=== PATIENT | female | born 1975 | race Caucasian/White ===

== ENCOUNTER → 2023-08-26 11:25 | Outpatient (CLI) | payer MEDICARE, MEDICAID, SELFPAY ==
[2023-08-26 19:13] LABS: Basophils % 0.3 % (0.1-2.0); Eosinophils # 0.2 K/mm3 (0.0-0.4); Eosinophils % 1.9 % (0.1-12.0); Hematocrit 40.9 % (37.0-47.0); Hemoglobin 13.6 g/dL (12.2-16.2); Lymphocytes # 2.5 K/mm3 (0.7-4.5); Lymphocytes % 21.6 % (10-50); Mean Corpuscular HGB Conc 33.2 g/dL (31.8-35.4); Mean Corpuscular Hemoglobin 29.4 pg (27.0-31.2); Mean Corpuscular Volume 88.7 fl (81-99); Mean Platelet Volume 8.7 fl (7.4-10.4); Monocytes # 0.7 K/mm3 (0.1-1.0); Monocytes % 6.2 % (1.7-9.3); Neutrophils # 8.1 K/mm3 (1.8-7.8); Platelet Count 249 K/mm3 (142-424); Red Blood Count 4.62 M/mm3 (4.20-5.40); Red Cell Distribution Width 15.8 % (11.5-17.5); White Blood Count 11.5 K/mm3 (4.8-10.8)
[2023-08-26 19:27] LABS: Alanine Aminotransferase 33 U/L (12-78); Albumin Level 4.2 g/dl (3.5-5.0); Albumin/Globulin Ratio 1.4 (1.1-1.8); Alkaline Phosphatase 64 U/L (38-126); Anion Gap 12.7 mEq/L (5-15); Aspartate Amino Transferase 37 U/L (14-36); Bilirubin,Total 0.5 mg/dl (0.2-1.3); Blood Urea Nitrogen 8 mg/dl (7-17); Calcium 9.8 mg/dl (8.4-10.2); Carbon Dioxide 29 mmol/L (22.0-30.0); Chloride 99 mmol/L (98-107); Chol/HDL Ratio 3.4 (1-3.5); Cholesterol 201 mg/dl (140-200); Estimated Glomerular Filt Rate 89 ml/min (>60); GFR (African American) 108 ML/MIN (>60); Glucose 87 mg/dl (74-100); HDL Cholesterol 59 mg/dl (40-60); Potassium 3.7 mmoL/L (3.5-5.1); Sodium 137 mmol/L (136-145); Total Protein,Serum 7.2 g/dl (6.3-8.2); Triglycerides 201 mg/dl (30-150); VLDL Cholesterol 40 mg/dL (0-40)
[2023-08-26 19:40] LABS: Direct LDL Cholesterol 115.03 mg/dL (100-129)
[2023-08-26 19:44] LABS: 25-OH Vitamin D, Total 29.5 ng/mL (30-100)
[2023-08-28 11:24] LABS: Amphetamine/Metha Screen,Urine Negative ng/ml (<1000); Barbiturates Screen,Urine Negative ng/ml (<200)
[2023-08-28 11:25] LABS: Benzodiazepines Screen,Urine Negative ng/ml (<200)
[2023-08-28 11:26] LABS: Cannabinoid Screen,Urine Positive ng/ml (<50); Cocaine Screen,Urine Negative ng/ml (<300)
[2023-08-28 11:27] LABS: Methadone Screen,Urine Negative ng/ml (<300); Opiate Screen,Urine Negative ng/ml (<300)
[2023-08-28 11:28] LABS: Phencyclidine Screen,Urine Negative ng/ml (<25)
[2023-08-28 11:31] LABS: Creatinine,Urine Random 90 mg/dL (Not Estab.); Microalbumin < 6.000 mg/L (0-16.7)
== END ==
PROVIDERS: PCP Emergency Medicine; Visit Provider Emergency Medicine
DX: E55.9 Vitamin D deficiency, unspecified (principal); E66.9 Obesity, unspecified; R73.03 Prediabetes; E78.5 Hyperlipidemia, unspecified; Z79.899 Other long term (current) drug therapy; Z68.44 Body mass index [BMI] 60.0-69.9, adult
CPT/HCPCS: 80053; 80061; 80305; 82043; 82306; 82570; 83036; 84436; 84443; 85025

== ENCOUNTER 2024-01-01 22:21 | Outpatient (CLI) | payer MEDICARE, MEDICAID, SELFPAY ==
[2024-01-01 18:08] LABS: Basophils # 0.1 K/mm3 (0-0.2); Basophils % 0.7 % (0.1-2.0); Eosinophils # 0.2 K/mm3 (0.0-0.4); Eosinophils % 1.3 % (0.1-12.0); Hematocrit 44.9 % (37.0-47.0); Hemoglobin 14.4 g/dL (12.2-16.2); Lymphocytes # 2.4 K/mm3 (0.7-4.5); Lymphocytes % 18.6 % (10-50); Mean Corpuscular HGB Conc 32.1 g/dL (31.8-35.4); Mean Corpuscular Hemoglobin 30.1 pg (27.0-31.2); Mean Corpuscular Volume 93.7 fl (81-99); Mean Platelet Volume 8.5 fl (7.4-10.4); Monocytes # 0.9 K/mm3 (0.1-1.0); Monocytes % 6.6 % (1.7-9.3); Neutrophils # 9.5 K/mm3 (1.8-7.8); Neutrophils % 72.9 % (37.0-80.0); Platelet Count 302 K/mm3 (142-424); Red Cell Distribution Width 14.7 % (11.5-17.5); White Blood Count 13.1 K/mm3 (4.8-10.8)
[2024-01-01 19:42] LABS: Hemoglobin A1C 5.3 % (4.0-6.0)
[2024-01-01 19:49] LABS: Alanine Aminotransferase 29 U/L (12-78); Albumin Level 3.8 g/dl (3.5-5.0); Albumin/Globulin Ratio 1.4 (1.1-1.8); Alkaline Phosphatase 72 U/L (38-126); Anion Gap 12.4 mEq/L (5-15); Aspartate Amino Transferase 28 U/L (14-36); Bilirubin,Total 0.6 mg/dl (0.2-1.3); Blood Urea Nitrogen 11 mg/dl (7-17); Calcium 9.4 mg/dl (8.4-10.2); Carbon Dioxide 28 mmol/L (22.0-30.0); Chloride 101 mmol/L (98-107); Estimated Glomerular Filt Rate 67 ml/min (>60); GFR (African American) 81 ML/MIN (>60); Globulin 2.8 g/dL (1.3-3.2); Glucose 102 mg/dl (74-100); Potassium 3.4 mmoL/L (3.5-5.1); Sodium 138 mmol/L (136-145); Total Protein,Serum 6.6 g/dl (6.3-8.2)
[2024-01-01 20:22] LABS: Thyroid Stimulating Hormone 0.45 uIU/mL (0.465-4.68)
== END 2024-01-01 23:59 ==
LOC: LAB.DROPOF 22:22
PROVIDERS: PCP Internal Medicine; Visit Provider Internal Medicine
DX: F41.9 Anxiety disorder, unspecified; Z79.899 Other long term (current) drug therapy; E03.8 Other specified hypothyroidism
CPT/HCPCS: 80053; 83036; 84443; 85025

== ENCOUNTER 2024-01-16 12:55 | Outpatient (CLI) | payer MEDICARE, MEDICAID, SELFPAY ==
[2024-01-16 18:05] LABS: Microalbumin/Creatinine Ratio 3.7
[2024-01-16 18:11] LABS: Creatinine,Urine Random 200 mg/dL (Not Estab.)
== END 2024-01-16 23:59 ==
LOC: LAB.DROPOF 12:56
PROVIDERS: PCP Internal Medicine; Visit Provider Internal Medicine
DX: R73.03 Prediabetes (principal)
CPT/HCPCS: 82043; 82570

== ENCOUNTER 2024-03-16 12:47 | Outpatient (CLI) | payer MEDICARE, MEDICAID, SELFPAY ==
[2024-03-16 18:46] LABS: Chloride 101 mmol/L (98-107); Sodium 137 mmol/L (136-145)
[2024-03-16 18:47] LABS: Potassium 3.6 mmoL/L (3.5-5.1)
[2024-03-16 18:49] LABS: Alanine Aminotransferase 28 U/L (12-78); Alkaline Phosphatase 66 U/L (38-126); Anion Gap 9.6 mEq/L (5-15); Aspartate Amino Transferase 29 U/L (14-36); Bilirubin,Total 0.5 mg/dl (0.2-1.3); Blood Urea Nitrogen 13 mg/dl (7-17); Carbon Dioxide 30 mmol/L (22.0-30.0); Estimated Glomerular Filt Rate 76 ml/min (>60); GFR (African American) 92 ML/MIN (>60)
[2024-03-16 18:50] LABS: Albumin/Globulin Ratio 1.4 (1.1-1.8); Calcium 9.6 mg/dl (8.4-10.2); Globulin 2.9 g/dL (1.3-3.2); Glucose 100 mg/dl (74-100); Total Protein,Serum 6.9 g/dl (6.3-8.2)
== END 2024-03-16 23:59 | disposition home or self-care (01) ==
LOC: LAB.DROPOF 03-17 10:21
PROVIDERS: PCP Internal Medicine; Visit Provider Internal Medicine
DX: E03.9 Hypothyroidism, unspecified (principal)
CPT/HCPCS: 80053; 84443

== ENCOUNTER 2024-06-09 11:00 | Outpatient (CLI) | payer MEDICARE, MEDICAID, SELFPAY ==
[2024-06-09 19:15] LABS: Erythrocyte Sedimentation Rate 16 mm/hr (0-20)
[2024-06-09 19:30] LABS: C-Reactive Protein 6.5 mg/L (0-4)
[2024-06-11 17:43] LABS: Anti-Centromere B Antibodies <0.2 AI (0.0-0.9); Anti-DNA (DS) Ab Qn <1 IU/mL (0-9); Anti-Jo-1 <0.2 AI (0.0-0.9); Anti-Smith Antibody <0.2 AI (0.0-0.9); Antichromatin Antibodies 0.2 AI (0.0-0.9); Antiscleroderma-70 Antibodies <0.2 AI (0.0-0.9); RNP Antibodies 1.1 AI (0.0-0.9); Sjogren's Anti-SS-A <0.2 AI (0.0-0.9); Sjogren's Anti-SS-B <0.2 AI (0.0-0.9)
[2024-06-21 14:10] LABS: 1,25 Dihydroxy Vitamin D 30 pg/mL (.); 1,25-Dihydroxy, Vitamin D-2 <10 pg/mL (.); 1,25-Dihydroxy, Vitamin D-3 29 pg/mL (.)
== END 2024-06-09 23:59 | disposition home or self-care (01) ==
LOC: LAB.DROPOF 06-10 11:00
PROVIDERS: PCP Internal Medicine; Visit Provider Internal Medicine
DX: E66.01 Morbid (severe) obesity due to excess calories (principal); Z68.44 Body mass index [BMI] 60.0-69.9, adult; G62.9 Polyneuropathy, unspecified; I89.0 Lymphedema, not elsewhere classified
CPT/HCPCS: 82652; 85651; 86140; 86225; 86235

== ENCOUNTER 2025-09-26 16:31 | Outpatient (CLI) | payer MEDICARE, MEDICAID, SELFPAY ==
[2025-09-26 17:32] LABS: Hematocrit 43.0 % (37.0-47.0); Hemoglobin 13.5 g/dL (12.2-16.2); Immature Granulocytes % 0.5 %; Mean Corpuscular HGB Conc 31.4 g/dL (31.8-35.4); Mean Corpuscular Hemoglobin 26.8 pg (27.0-31.2); Mean Corpuscular Volume 85.3 fl (81-99); Nucleated Red Blood Cells % 0 %; Platelet Count 383 K/mm3 (142-424); Red Blood Count 5.04 M/mm3 (4.20-5.40); Red Cell Distribution Width-SD 44.9 fL; White Blood Count 15.1 K/mm3 (4.8-10.8)
[2025-09-26 17:45] LABS: Albumin Level 4.4 g/dl (3.5-5.0); Chloride 98 mmol/L (98-107); Potassium 3.9 mmoL/L (3.5-5.1); Sodium 137 mmol/L (136-145)
[2025-09-26 17:48] LABS: Alanine Aminotransferase 24 U/L (12-78); Albumin/Globulin Ratio 1.4 (1.1-1.8); Alkaline Phosphatase 75 U/L (38-126); Anion Gap 14.9 mEq/L (5-15); Aspartate Amino Transferase 30 U/L (14-36); Bilirubin,Total 0.5 mg/dl (0.2-1.3); Blood Urea Nitrogen 18 mg/dl (7-17); Calcium 9.8 mg/dl (8.4-10.2); Carbon Dioxide 28 mmol/L (22.0-30.0); Cholesterol 203 mg/dl (140-200); Creatinine,Serum 0.80 mg/dl (0.52-1.04); Estimated Glomerular Filt Rate 76 ml/min (>60); GFR (African American) 92 ML/MIN (>60); Globulin 3.2 g/dL (1.3-3.2); Glucose 128 mg/dl (74-100); HDL Cholesterol 70 mg/dl (40-60); Total Protein,Serum 7.6 g/dl (6.3-8.2); Triglycerides 135 mg/dl (30-150)
== END 2025-09-26 23:59 | disposition home or self-care (01) ==
PROVIDERS: PCP Student in an Organized Health Care Education/Training Program; Visit Provider Student in an Organized Health Care Education/Training Program
DX: M17.0 Bilateral primary osteoarthritis of knee (principal); I10 Essential (primary) hypertension; E66.01 Morbid (severe) obesity due to excess calories; Z13.6 Encounter for screening for cardiovascular disorders
CPT/HCPCS: 36415; 80053; 80061; 85025

== ENCOUNTER 2025-10-18 13:01 | Outpatient (CLI) | payer MEDICARE, MEDICAID, SELFPAY ==
[2025-10-18 21:48] LABS: Uric Acid 7.5 mg/dl (2.5-6.2)
[2025-10-18 21:54] LABS: C-Reactive Protein 9.3 mg/L (0-4)
[2025-10-18 21:55] LABS: Hemoglobin A1C 5.6 % (4.0-6.0)
[2025-10-18 22:07] LABS: Free T4 (Free Thyroxine) 1.37 ng/dl (0.78-2.19)
[2025-10-18 22:19] LABS: Thyroid Stimulating Hormone 9.54 uIU/mL (0.465-4.68)
--- OUTSIDE RECORDS SUMMARY | 2025-10-19 18:15 | XMS_ITS | Clinical Summary ---
[facility] Organization [facility] Address [address] [id number] Care Team Providers Care Steam Service Inspector Name Role Phone Mikie Chan MD Primary Care Provider + Allergies No known active allergies Medications aspirin 81 MG EC tablet Take 81 mg by mouth 3 (Three) Times a Day. Active Acetaminophen (TYLENOL ARTHRITIS PAIN PO) Take 2 tablets by mouth Daily. Active Multiple Vitamins-Minerals (MULTIVITAMIN ADULT PO) Take 1 tablet by mouth Daily. Active Naloxegol Oxalate (MOVANTIK) 25 MG tabletIndications: Therapeutic opioid induced constipation Take 1 tablet by mouth Every Morning. 30 tablet 2 09/20/20 19 Active triamcinolone (KENALOG) 0.1 % creamIndications:R gigi Apply topically to the appropriate area as directed 2 (Two) Times a Day. 28.4 g 11/25/19 20 Active D3-1000 25 MCG (1000 UT) tablet T1T PO QD 30 tablet 5 01/04/20 20 Active Spinosad 0.9 % suspensionIndicati ons:Pediculosis capitis Apply to scalp x 1 and repeat in 7 days if live lice 120 mL 1 01/04/20 20 Active olopatadine (PATANOL) 0.1 % ophthalmic solutionIndication s:Allergic conjunctivitis of both eyes INSTILL 1 DROP INTO BOTH EYES EVERY DAY 5 mL 5 08/08/20 20 Active famotidine (PEPCID) 40 MG tabletIndications: Gastroesophageal reflux disease TAKE 1/2 TABLET BY MOUTH TWICE DAILY 30 tablet 2 03/29/20 21 Active valACYclovir (VALTREX) 1000 MG tablet TAKE 1 TABLET BY MOUTH EVERY DAY DIRECTED 30 tablet 1 07/10/20 21 Active hydrOXYzine pamoate (VISTARIL) 25 MG capsuleIndications :Anxiety and depression Take 1 capsule by mouth Every 6 (Six) Hours As Needed for Itching. 45 capsule 2 06/04/20 22 Active Cholecalciferol (Vitamin D3) 50 MCG (2000 UT) tablet TAKE 2 TABLETS BY MOUTH EVERY DAY 60 tablet 9 10/18/20 22 Active ondansetron ODT (ZOFRAN-ODT) [address] 1 TABLET ON THE TONGUE AND ALLOW TO DISSOLVE EVERY 8 HOURS NEEDED FOR NAUSEA AND VOMITING 15 tablet 1 12/30/19 23 Active hydroCHLOROthiazid e (HYDRODIURIL) 25 MG tablet TAKE 1 TABLET BY MOUTH EVERY DAY 30 tablet 1 02/08/20 23 Active cyclobenzaprine (FLEXERIL) 10 MG tablet Take 0.5-1 tablets by mouth 3 (Three) Times a Day As Needed for Muscle Spasms. 45 tablet 2 03/04/20 23 Active potassium chloride 10 MEQ CR tablet Take 1 tablet by mouth Daily. 90 tablet 1 03/04/20 23 Active oxybutynin XL (DITROPAN XL) 15 MG 24 hr tablet Take 1 tablet by mouth Daily. Take with 5 mg dose 30 tablet 5 03/10/20 23 Active oxybutynin XL (DITROPAN-XL) 5 MG 24 hr tablet Take 1 tablet by mouth Daily. Take with 15 mg dose 30 tablet 5 03/10/20 23 Active levothyroxine (SYNTHROID, LEVOTHROID) 150 MCG tabletIndications: Hypothyroidism, unspecified type Take 1 tablet by mouth Daily. 30 tablet 5 03/11/20 23 Active fluticasone (FLONASE) 50 MCG/ACT nasal sprayIndications:D ysfunction of both eustachian tubes INSTILL 2 SPRAYS IN EACH NOSTRIL EVERY DAY 16 g 1 03/21/20 23 Active fluconazole (DIFLUCAN) 150 MG tablet TAKE 1 TABLET BY MOUTH TODAY MAY REPEAT IN 3 DAYS IF NOT BETTER 2 tablet 06/13/20 23 Active gabapentin (NEURONTIN) 600 MG tabletIndications: Neuropathy,Chronic bilateral low back pain with bilateral sciatica Take 1 tablet by mouth 3 (Three) Times a Day. 90 tablet 1 07/17/20 23 Active ferrous sulfate (FeroSul) 325 (65 FE) MG tablet Take 1 tablet by mouth Daily With Breakfast. 30 tablet 1 07/17/20 23 Active albuterol sulfate HFA 108 (90 Base) MCG/ACT inhaler INHALE 2 PUFFS EVERY 4 (FOUR) HOURS NEEDED FOR WHEEZING. 8.5 g 07/18/20 23 Active tobramycin 0.3 % solution ophthalmic solutionIndication s:Acute conjunctivitis of both eyes, unspecified acute conjunctivitis type Administer 1 drop to both eyes Every 6 (Six) Hours. 5 mL 2 09/09/20 23 Active metoprolol succinate XL (TOPROL-XL) 50 MG 24 hr tabletIndications: Essential hypertension Take 1 tablet by mouth Daily. 30 tablet 1 09/08/20 23 Active FLUoxetine (PROzac) 40 MG capsuleIndications :Anxiety and depression Take 1 capsule by mouth Daily. 30 capsule 1 09/08/20 23 Active Semaglutide, 1 MG/DOSE, (Ozempic, 1 MG/DOSE,) 4 MG/3ML solution pen-injector Inject 1 mg under the skin into the appropriate area as directed 1 (One) Time Per Week. 3 mL 1 09/11/20 23 Active buPROPion SR (WELLBUTRIN SR) 150 MG 12 hr tablet Take 1 tablet by mouth 2 (Two) Times a Day. APPOINTMENT NEEDED 60 tablet 02/18/20 Active Active Problems Problem Noted Date Diagnosed Date ERRONEOUS ENCOUNTER--DISREGARD 07/29/2024 Colon cancer screening 04/23/2023 Overview (04/23/2023): Added automatically from request for surgery [id number] Prediabetes 03/04/2023 CRF (chronic renal failure), stage 4 (severe) Leukocytosis 04/16/2021 Polycythemia 04/16/2021 Chest pain 07/03/2018 Palpitations 07/03/2018 Murmur, cardiac 07/03/2018 Immunizations Immunization Administration Dates Next Due COVID-19 (PFIZER) Purple Cap Monovalent 09/26/20 21,01/31/2021,01/06/2021 Hepatitis B 01/19/2002,03/19/2001,01/22/2001 MMR 01/22/2001 flucelvax quad pfs =>4 YRS 09/20/2019 Family History Medical History Relation Name Comments Diabetes Father Heart attack Father Hyperlipidemia Father Hypertension Father Mental illness Father Obesity Father Thyroid disease Father Arthritis Mother Hypertension Mother Kidney disease Mother Mental illness Mother Migraines Mother Obesity Mother Stroke Mother Mental illness Sister Obesity Sister Relation Name Status Comments Father Mother Sister Alive Social History Tobacco Use Types Packs/Day Years Used Date Smoking Tobacco: Never Smokeless Tobacco: Never Alcohol Use Standard Drinks/Week Comments No 0 (1 standard drink = 0.6 oz pur e alcohol) PHQ-2 Answer Date Recorded Retired Total Score 0 04/16/2021 Abuse Screen Answer Date Recorded Unsafe at Home or Work/School Not on file Feels Threatened by Someone? Not on file 07/2023 Does Anyone Keep You from Co ntacting Others or Doint Things Outside the Home? Not on file 08/11/2023 Physical Sign of Abuse Present Not on file 1 Housing Stability Answer Date Recorded Current Living Arrangements Not on file 07/2023 Potentially Unsafe Housing Conditions Not on damian e 08/11/2023 Family and Community Support Answer Nuno e Recorded Help with Day-to-Day Activities Not on file 08/11/2023 Lonely or Isolated Not on file 08/11/2023 Employment Answer Date Recorded Do you want help finding or keeping work or a lena b? Not on file 08/11/2023 Disabilities Answer Date Recorded Concentrating, Remembering, or Making Decisions Difficulty Not on file 08/11/2023 Doing Errands Independently Difficulty Not on fi le 08/11/2023 Education Answer Date Recorded Help with school or training? Not on file Preferred Language Not on file 08/11/2023 Comments Unknown Sex and Gender Information Value Date Recorded Sex Assigned at Not on file Legal Sex Female 12:27 PM EDT Gender Identity Not on file Sexual Orientation Not on file Last Filed Vital Signs Vital Sign Reading Time Taken Comments Blood Pressure 128/84 03/04/2023 4:18 PM EDT Pulse 86 03/04/2023 4:18 PM EDT Temperature 37 C (98.6 F) 03/04/2023 4:18 PM EDT Respiratory Rate 18 03/04/2023 4:18 PM EDT Oxygen Saturation 98% 04/16/2021 11:40 AM EDT Inhaled Oxygen Concentration - - Weight 199 kg (438 lb) 03/04/2023 4:18 PM EDT Height 167.6 cm (5' 6 ) 03/04/2023 4:18 PM EDT Body Mass Index 70.7 03/04/2023 4:18 PM EDT Plan of Treatment Health Maintenance Due Date Last Done Comments Annual Gynecologic Pelvic an d Breast Exam 1974 TDAP/TD VACCINES (1 - Tdap) 1993 MAMMOGRAM 2014 ANNUAL PHYSICAL 06/19/2018 COLOGUARD 2019 COLON CANCER SCREENING 5 YEA R SIGMOIDOSCOPY 2019 COLONOSCOPY 2019 [address] CANCER SCREENING 2019 CT COLONOGRAPHY 2019 FECAL OCCULT BLOOD TEST 2019 FIT Testing (1 year) 2019 PAP SMEAR 07/24/2023 07/24/2020 (Patient-Reported (Performed Externally)) Pneumococcal Vaccine 50+ (1 of 1 - PCV) 2024 ZOSTER VACCINE (1 of 2) 2024 INFLUENZA VACCINE 06/03/2025 09/20/2019, 09/20/2019 HEPATITIS C SCREENING Completed 10/10/2020 HEMOGLOBIN A1C Discontinued 06/05/2022, 06/0 02/2021, 11/25/2019 Procedures Procedure Name Priority Date/Time Associated Diagnosis Comments HEMOGLOBIN A1C Routine 06/05/2022 12:00 AM EDT Hyperglycemia HEPATITIS C ANTIBODY Routine 10/10/2020 4:12 PM EST Rectal bleeding Chronic renal failure, stage 3 (moderate) SCANNED - INFLUENZA 09/20/2019 from Last 3 Months or Most Recently Relevant to Health Maintenance Results * (ABNORMAL) Hemoglobin A1c (06/05/2022 12:00 AM EDT) Hemoglobin A1C 6.1(H) 4.8 - 5.6 % [facility] Comment: Prediabetes: 5.7 - 6.4 Diabetes: >6.4 Glycemic control for adults with diabetes: <7.0 Blood 06/05/2022 06/05/2022 Comment:Blood Manual Differe n Narrative [facility] - 06/06/2022 4:10 PM EDT Performed at: 01 - [facility] [address] [place], [place] [id number] Tree Marker: Jase Valle PhD, Phone: [phone] Cornel Cain MD LAB BLOOD ORDERABLES Final Resu lt [facility] [address] [place] [address], [place] [phone] [facility] [address] [place] [address], [place] [phone] * Hepatitis C Antibody (10/10/2020 4:12 PM EST) Hepatitis C Ab Non-Reacti ve Non-Reacti ve 10/10/2020 8:46 PM EST [facility] Blood Venipuncture / Unknown 10/10/2020 4:12 PM EST 10/10/2020 4:12 PM EST Narrative [facility] - 10/10/2020 8:46 PM EST Results may be falsely decreased if patient taking Biotin. us Cornel Cain MD LAB BLOOD ORDERABLES Final Resu lt [facility]
[address] [place] [address], * SCANNED - INFLUENZA (09/20/2019) us Cornel Cain MD CHART REVIEW TABS Final Resu lt from Last 3 Months or Most Recently Relevant to Health Maintenance Insurance Care Teams Steam Service Inspector Relationship Specialty Start Date End Date Mikie Chan MD [address] [place] [address] PCP - General Family Medicine 10/07/24
--- OUTSIDE RECORDS SUMMARY | 2025-10-19 18:15 | XMS_ITS | Encounter Summary ---
Author Organization [facility] Address [address] [place] [address] Care Team Providers Care Pottery Machine Operator Name Role Phone Mikie Chan MD Primary Care Provider + Reason for Visit * Reason Comments Med Refill Encounter Details Date Type Department Care Team (Late st Contact Info) Description 08/03/2021 Refill [facility] [address] [place] [address] Cornel Cain MD [address] [place] [address] Essential hypertension Social History Tobacco Use Types Packs/Day Years Used Date Smoking Tobacco: Never Smokeless Tobacco: Never Alcohol Use Standard Drinks/Week Comments No 0 (1 standard drink = 0.6 oz pur e alcohol) PHQ-2 Answer Date Recorded Retired Total Score 0 04/16/2021 Comments Unknown Sex and Gender Information Value Date Recorded Sex Assigned at Not on file Legal Sex Female 12:27 PM EDT Gender Identity Not on file Sexual Orientation Not on file documented as of this encounter Plan of Treatment Not on file documented as of this encounter Visit Diagnoses Diagnosis Essential hypertension Unspecified essential hypertension documented in this encounter Care Teams Pottery Machine Operator Relationship Specialty Start Date End Date Mikie Chan MD [address] [place] [address] PCP - General Family Medicine 10/07/24 documented as of this encounter
--- OUTSIDE RECORDS SUMMARY | 2025-10-19 18:15 | XMS_ITS | Encounter Summary ---
Author Organization [facility] Address [address] [place] [address] Care Team Providers Care Roving Hand Name Role Phone Mikie Chan MD Primary Care Provider + Reason for Visit * Reason Comments Med Refill Encounter Details Date Type Department Care Team (Late st Contact Info) Description 10/25/2019 Refill [facility] [address] [place] [address] Cornel Cain MD [address] [place] [address] Social History Tobacco Use Types Packs/Day Years Used Date Smoking Tobacco: Never Smokeless Tobacco: Never Alcohol Use Standard Drinks/Week Comments No 0 (1 standard drink = 0.6 oz pur e alcohol) Comments Unknown Sex and Gender Information Value Date Recorded Sex Assigned at Not on file Legal Sex Female 12:27 PM EDT Gender Identity Not on file Sexual Orientation Not on file documented as of this encounter Plan of Treatment Not on file documented as of this encounter Visit Diagnoses Not on filedocumented in this encounter Care Teams Roving Hand Relationship Specialty Start Date End Date Mikie Chan MD [address] [place] [address] PCP - General Family Medicine 10/07/24 documented as of this encounter
--- OUTSIDE RECORDS SUMMARY | 2025-10-19 18:15 | XMS_ITS | Encounter Summary ---
Author Organization [facility] Address [address] [place] [address] Care Team Providers Care Gym Attendant Name Role Phone Mikie Chan MD Primary Care Provider + Reason for Visit * Reason Onset Date Comments Med Refill 09/07/2021 Encounter Details Date Type Department Care Team (Late st Contact Info) Description 09/07/2021 Refill [facility] [address] [phone] Cornel Cain MD [address] [phone] Social History Tobacco Use Types Packs/Day Years [...] on file documented as of this encounter Miscellaneous Notes * Telephone Encounter - Felicitas Mosher RegSched Rep - 09/07/2021 3:50 PM EDT Caller: Marylu Carlos Relationship: Self equested Prescriptions: Requested Prescriptions Pending Prescriptions Disp Refills ??? fluconazole (Diflucan) 150 MG tablet 2 tablet 0 Sig: one by mouth today and repeat in 3 days if not better Pharmacy where request should be sent: [facility] - [place], [place] - [address] - [phone] PH - [phone] Additional details provided by patient: PATIENT STATES THAT HER YEAST INFECTION WAS BETTER UNTIL HER TOOTH GOT INFECTED AND SHE WAS PRESCRIBED AN ANTIBIOTIC AND NOW SHE HAS ANOTHER YEAST INFECTION. PATIENT IS REQUESTING A REFILL ON DIFLUCAN 2 DOSES Best call back number: Does the patient have less than a 3 day supply: [x] Yes [] No Wendi Hartley 09/07/21 15:52 EDT documented in this encounter Plan of Treatment Not on file documented as of this encounter Visit Diagnoses Not on filedocumented in this encounter Care Teams Gym Attendant Relationship Specialty Start Date End Date Mikie Chan MD [address] [place] [address] PCP - General Family Medicine 10/07/24 documented as of this encounter
--- OUTSIDE RECORDS SUMMARY | 2025-10-19 18:15 | XMS_ITS | Data Portability ---
Author Organization [facility],, Main Office Address [address] [place] [address] Assessment Encounter Date Assessment Date Assessment LastModified by Organization Details LastModified Time 05/08/2020 05/08/2020 Annual gynecological exam performed. Patient will come back in a year unless there are new symptoms. [email or web address] Not available 05/08/2020 14:07:08 Plan of Treatment Reminders Order Date Submit Date Provider Last Modified By Organization Details Last Modified Time Details Appointments None recorded. Lab urinalysis , dipstick 2019 020 [facility] Main Office, [address], [place], [address], 0 15:30:06 test, urine 2019 020 [facility] Main Office, [address], [place], [address], 0 15:29:43 Referral None recorded. Procedures None recorded. Surgeries None recorded. Imaging None recorded. Medication Orders darifenaci n ER 7.5 mg tablet,ext ended release 24 hr 2019 020 [facility], [address] [place] [address], [address], [place], [address], 0 15:44:45 Patient TargetsNo targets recorded. Patient Instructions Encounter Date Encounter Id Patient Instructions Last Modified By Organization Details Last Modified Time 05/08/2020 bacterial vaginosis: care instructions [email or web address] Not available 08/05/2020 15:51:29 Stress Incontinence: Care Instructions [email or web address] Not available 05/08/2020 15:25:46 Reason for Referral None Reported. Results Created Date Observation Date Name Description Value Unit Range Abnormal Flag Note LastModifiedBy Organization Detail LastModifiedTime 05/08/20 20 05/09/2020 pap, LB Pap test thin prep Negati ve for Intrae pithel ial Lesion or Malign maki normal ACCES ROBI #: [id number] Sourc e: Cervi alexx/E ndoce rvica l LMP: and gt;1 year Date Taken : 05/08 Speci men Type: ThinP rep Vial Date Repor abner: Clini alexx Data: Last Pap: unkno wn Cytot ech: Marvel el Beu CT( CP) Date Repor abner: Speci men Adequ acy: Satis facto ry for evalu ation Gener al Categ oriza tion: NEGAT ANTONIO FOR INTRA EPITH ELIAL LESIO N OR MALIG ZAK The follo wing tests have been order ed as reque sted and a separ ate repor t will be issue d: Neiss eria gonor rhoea e, Chlam ydia trach omati s, Vagin itis Panel This speci men has been josephine zed by the ThinP rep Imagi ng Syste m, an inter activ e compu ter syste m which enio ts the lab in the scree lis of ThinP rep Pap Test slide s. Follo wing imagi ng, the slide was revie wed by a Cytot echno logis t and/o r Patho logis t. End of Repor t Techn ical servi humera provi ded by [facility] [employer] Patho logis [employer], d/b/a [facility]icia, [address] [place] [address] Ravi Solano MD, Labor atory Dire tor. Case revie wed and diagn osis rende red at [facility] [employer] Patho logis [employer], d/b/a [facility], [address] [place] [address] Ravi Solano MD, Labor atory Dire tor. CONFI DENTI AL Not Available [facility] ([facility]) [address], [place], [address], 05/12/2020 09:29:01 05/08/20 20 05/10/2020 bacte rial vagin osis + vagin itis panel , vagin al raheel sp. Not Detect ed normal Trich omona s vagin deysi: DNA testi ng perfo rmed by Trans cript ion Media abner Ampli ficat ion (TMA) These resul ts shoul d be inter prete d in light of all clini alexx and labor atory findi ngs. This assay is highl y accur ate, but rare false posit antonio and negat antonio resul ts may occur . Posit antonio resul ts in low preva lence popul ation s may requi re re-ev aluat ion. A negat antonio resul t does not precl ude a possi ble infec tion due to a speci men inade quacy or sampl ing error . Test perfo rmed by [facility], d/b/a Path rou, [address], [place] [address] , Regis Ball ra, DO, Labor atory Direc tor. Kiley vaughnll a vagin deysi, Leann da speci es: Genom ic DNA is isola abner from patie nt speci mens by stand queenie labor atory techn iques and josephine zed using custo m OpenA rray plate s, perfo rmed on the Quant Studi o 12K Flex Real Time PCR syste m. A posit antonio resul t is provi ded for patho genic bacte hieu, virus and/o r funga l speci es based on detec tion of ampli ficat ion produ cts. Leidy l vagin al myranda resul ts of Leidy l or [place] abner are deter mined by calcu latin g the ratio of the organ ism to the total bacte hieu prese nt in the speci men, and milly ring that ratio to a PathG roup patie nt popul ation . Overa ll resul ts of Leidy l, Borde rline and Abnor mal are deter mined using a proba bilit y model which was devel oped by an exten sive josephine sis and integ ratio n of clini alexx thres holds for marke r organ isms on a large set of sympt omati c & asymp tomat ic speci mens. Patie nt popul ation s with diffe rent demog raphi cs from the PathG roup model popul ation may have diffe rent indic ator organ isms with diffe rent relat antonio ratio s, which would influ ence the final resul ts. Resul ts shoul d be inter prete d in the angelique xt of all clini alexx and labor atory findi ngs. The test was devel oped and its perfo rmanc e sheila cteri stics deter mined by [employer], [employer] d/b/a Path [employer]. It has not been clear ed or appro ross by the U.S. Food and Drug Admin istra tion. The FDA has deter mined that such clear ance or appro lizeth is not neces delvin. Perti nent refer ence inter vals are avail able from the [employer] atory on reque st. Test( s) perfo rmed by [employer], [employer], d/b/a [facility], [address] [facility] [address], [place] [address] , Regis Ball ra, DO, Labor atory Dire tor. Not Available [facility] ([facility]) [address], [place], [address], 05/12/2020 09:29:01 05/08/20 20 05/10/2020 bacte rial vagin osis + vagin itis panel , vagin al gardnerella vaginalis Detect ed abnormal Trich omona s vagin deysi: DNA testi ng perfo rmed by Trans cript ion Media abner Ampli ficat ion (TMA) These resul ts shoul d be inter prete d in light of all clini alexx and labor atory findi ngs. This assay is highl y accur ate, but rare false posit antonio and negat antonio resul ts may occur . Posit antonio resul ts in low preva lence popul ation s may requi re re-ev aluat ion. A negat antonio resul t does not precl ude a possi ble infec tion due to a speci men inade quacy or sampl ing error . Test perfo rmed by [facility], d/b/a [facility], [address], [place] [address] , Regis Ball ra, DO, Labor atory Direc tor. Gardn erell a vagin deysi, Leann da speci es: Genom ic DNA is isola abner from patie nt speci mens by stand queenie labor atory techn iques and josephine zed using custo m OpenA rray plate s, perfo rmed on the Quant Studi o 12K Flex Real Time PCR syste m. A posit antonio resul t is provi ded for patho genic bacte hieu, virus and/o r funga l speci es based on detec tion of ampli ficat ion produ cts. Leidy l vagin al myranda resul ts of Leidy l or [place] abner are deter mined by calcu latin g the ratio of the organ ism to the total bacte hieu prese nt in the speci men, and milly ring that ratio to a PathG roup patie nt popul ation . Overa ll resul ts of Leidy l, Borde rline and Abnor mal are deter mined using a proba bilit y model which was devel oped by an exten sive josephine sis and integ ratio n of clini alexx thres holds for marke r organ isms on a large set of sympt omati c & asymp tomat ic speci mens. Patie nt popul ation s with diffe rent demog raphi cs from the PathG roup model popul ation may have diffe rent indic ator organ isms with diffe rent relat antonio ratio s, which would influ ence the final resul ts. Resul ts shoul d be inter prete d in the angelique xt of all clini alexx and labor atory findi ngs. The test was devel oped and its perfo rmanc e sheila cteri stics deter mined by [employer] d/b/a PathG rou. It has not been clear ed or appro ross by the U.S. Food and Drug Admin istra tion. The FDA has deter mined that such clear ance or appro lizeth is not neces delvin. Perti nent refer ence inter vals are avail able from the labor atory on reque st. Test( s) perfo rmed by [employer], [employer], d/b/a [facility], [address], [place] [address] , Regis Ball ra, , Labor atory Direc tor. Not Available [facility] ([facility]) [address], [place], [address], 05/12/2020 09:29:01 05/08/20 20 05/11/2020 bacte rial vagin osis + vagin itis panel , vagin al trichomonas vaginalis, aptima (panther) NOT DETECT ED normal Trich omona s vagin deysi: DNA testi ng perfo rmed by Trans cript ion Media abner Ampli ficat ion (TMA) These resul ts shoul d be inter prete d in light of all clini alexx and labor atory findi ngs. This assay is highl y accur ate, but rare false posit antonio and negat antonio resul ts may occur . Posit antonio resul ts in low preva lence popul ation s may requi re re-ev aluat ion. A negat antonio resul t does not precl ude a possi ble infec tion due to a speci men inade quacy or sampl ing error . Test perfo rmed by [employer], d/b/a [facility], [address], [place] [address] , Regis Ball ra, , Labor atory Direc tor. Gardn erell a vagin deysi, Leann da speci es: Genom ic DNA is isola abner from patie nt speci mens by stand queenie labor atory techn iques and josephine zed using custo m OpenA rray plate s, perfo rmed on the Quant Studi o 12K Flex Real Time PCR syste m. A posit antonio resul t is provi ded for patho genic bacte hieu, virus and/o r funga l speci es based on detec tion of ampli ficat ion produ cts. Leidy l vagin al myranda resul ts of Leidy l or [place] abner are deter mined by calcu latin g the ratio of the organ ism to the total bacte hieu prese nt in the speci men, and milly ring that ratio to a PathG roup patie nt popul ation . Overa ll resul ts of Leidy l, Borde rline and Abnor mal are deter mined using a proba bilit y model which was devel oped by an exten sive josephine sis and integ ratio n of clini alexx thres holds for marke r organ isms on a large set of sympt omati c & asymp tomat ic speci mens. Patie nt popul ation s with diffe rent demog raphi cs from the PathG roup model popul ation may have diffe rent indic ator organ isms with diffe rent relat antonio ratio s, which would influ ence the final resul ts. Resul ts shoul d be inter prete d in the angelique xt of all clini alexx and labor atory findi ngs. The test was devel oped and its perfo rmanc e sheila cteri stics deter mined by [employer], [employer] d/b/a PathMichelle harry. It has not been clear ed or appro ross by the U.S. Food and Drug Admin istra tion. The FDA has deter mined that such clear ance or appro lizeth is not neces delvin. Perti nent refer ence inter vals are avail able from the labor atory on reque st. Test( s) perfo rmed by [employer] [facility], d/b/a Addie harry, [address], [place] [address] , Regis Ball ra, DO, Labor atory Direc tor. Not Available [facility] ([facility]) [address] [place] [address] [address], [place], [address], 05/12/2020 09:29:01 05/08/20 20 05/11/2020 neiss eria gonor rhoea e, cultu re, unspe cifie d speci men neisseria gonorrhoeae, aptima NOT DETECT ED normal DNA testi ng perfo rmed by Trans cript ion Media abner Ampli ficat ion (TMA) These resul ts shoul d be inter prete d in light of all clini alexx and labor atory findi ngs. This assay is highl y accur ate, but rare false posit antonio and negat antonio resul ts may occur . Posit antonio resul ts in low preva lence popul ation s may requi re re-ev aluat ion. A negat antonio resul t does not precl ude a possi ble infec tion due to a speci men inade quacy or sampl ing error . Test perfo rmed by [facility], [facility], d/b/a Addie harry, [address] [place] [address] [place] [address] , Regis Ball ra, DO, Labor atory Direc tor. Not Available [facility] ([facility]) [address] [place] [address] [address], [place], [address], 05/12/2020 09:29:02 05/08/20 20 05/11/2020 CT, DNA, qual, PCR, unspe cifie d speci men chlamydia trachomatis, aptima NOT DETECT ED normal DNA testi ng perfo rmed by Trans cript ion Media abner Ampli ficat ion (TMA) These resul ts shoul d be inter prete d in light of all clini alexx and labor atory findi ngs. This assay is highl y accur ate, but rare false posit antonio and negat antonio resul ts may occur . Posit antonio resul ts in low preva lence popul ation s may requi re re-ev aluat ion. A negat antonio resul t does not precl ude a possi ble infec tion due to a speci men inade quacy or sampl ing error . Test perfo rmed by [facility], d/b/a PathG natalieleticia, [address], [place] [address] , Regis Ball ra, DO, Labor atory Dire tor. Not Available [facility] ([facility]) [address], [place], [address], 05/12/2020 09:29:02 05/08/2005/08/2020 urina lysis , dipst ick Leukocytes - Not Available Main Of fice [address], [place], [address], 05/08/2020 14:22:30 05/08/20 20 05/08/2020 urina lysis , dipst ick Nitrite negati ve Not Available Main Office [address], [place], [address], 05/08/2020 14:22:30 05/08/20 20 05/08/2020 urina lysis , dipst ick Urobilinogen - Not Available Main Office [address], [place], [address], 05/08/2020 14:22:30 05/08/2005/08/2020 urina lysis , dipst ick Protein - Not Available Main Offic e [address], [place], [address], 05/08/2020 14:22:30 05/08/20 20 05/08/2020 urina lysis , dipst ick pH 5.0 Not Available Main Offic e [address], [place], [address], 05/08/2020 14:22:30 05/08/20 20 05/08/2020 urina lysis , dipst ick Blood - Not Available Main Offic e [address], [place], [address], 05/08/2020 14:22:30 05/08/20 20 05/08/2020 urina lysis , dipst ick Specific Margie 1.020 Not Available Main O ffice [address], [place], [address], 05/08/2020 14:22:30 05/08/20 20 05/08/2020 urina lysis , dipst ick Ketone - Not Available Main Offic e [address], [place], [address], 05/08/2020 14:22:30 05/08/20 20 05/08/2020 urina lysis , dipst ick Bilirubin - Not Available Main Off ice [address], [place], [address], 05/08/2020 14:22:30 05/08/20 20 05/08/2020 urina lysis , dipst ick Glucose - Not Available Main Offic e [address], [place], [address], 05/08/2020 14:22:30 05/08/20 20 05/08/2020 urina lysis , dipst ick Appearance - Not Available Main Of fice [address], [place], [address], 05/08/2020 14:22:30 05/08/20 20 05/08/2020 urina lysis , dipst ick Color - Not Available Main Offic e [address], [place], [address], 05/08/2020 14:22:30 05/08/20 20 05/08/2020 pregn maki test, urine HCG negati ve Not Available Main Office [address], [place], [address], 05/08/2020 14:22:39 Result Notes None recorded. Procedures Surgical History Date Name Laterality Status Provider Name and Address Organization Details Recorded Time 05/08/20 20 Date of Last Pap Smear completed [facility], 05/08/2020 14:16:53 Cholecystectomy completed [facility], 05/08/2020 14:16:23 delivery completed [facility], 05/08/2020 14:16:31 ligation of fallopian tube completed [facility], 05/08/2020 14:16:39 Imaging Results None recorded. Procedure Notes None recorded. Medical Equipment None Reported. Allergies No known drug allergies Medications Name Sig Start Date Stop Date Status Note LastModified by Organization Details LastModified Time cyclobenzapri ne 10 mg tablet active Not Available Not Available Not Available amoxicillin 500 mg capsule 05/08 completed Not Available Not Available Not Available levothyroxine 175 mcg tablet active Not Available Not Available Not Available bupropion HCl SR 150 mg tablet,12 hr sustained-rel ease active Not Available Not Available Not Available oxybutynin chloride ER 15 mg tablet,extend ed release 24 hr active Not Available Not Available Not Available gabapentin 600 mg tablet active Not Available Not Availabl e Not Available fluconazole 150 mg tablet 05/08 completed Not Available Not Available Not Available valacyclovir 1 gram tablet 05/08 completed Not Available Not Available Not Available hydrocodone 5 mg-acetaminop hen 325 mg tablet 05/08 completed Not Available Not Available Not Available famotidine 40 mg tablet active Not Available Not Available No t Available gabapentin 400 mg capsule 05/08 completed Not Available Not Available Not Available hydroxyzine pamoate 50 mg capsule active Not Available Not Available Not Available triamcinolone acetonide 0.1 % topical cream active Not Available Not Available Not Available ondansetron 8 mg disintegratin g tablet active Not Available Not Available Not Available levothyroxine 100 mcg tablet 05/08 completed Not Available Not Available Not Available levothyroxine 88 mcg tablet 05/08 completed Not Available Not Available Not Available famotidine 20 mg tablet 05/08 completed Not Available Not Available Not Available Flagyl 500 mg tablet Take 1 tablet every 12 hours by oral route for 7 days. 2019 active Not Available Not Available Not Avai lable oseltamivir 75 mg capsule 05/08 completed Not Available Not Available Not Available levothyroxine 125 mcg tablet active Not Available Not Available Not Available buspirone 10 mg tablet 05/08 completed Not Available Not Available Not Available olopatadine 0.1 % eye drops active Not Available Not Available Not Available gabapentin 300 mg capsule 05/08 completed Not Available Not Available Not Available lisinopril 20 mg-hydrochlor othiazide 25 mg tablet 05/08 completed Not Available Not Available Not Available hydrochloroth iazide 25 mg tablet 05/08 completed Not Available Not Available Not Available metoprolol succinate ER 25 mg tablet,extend ed release 24 hr active Not Available Not Available Not Available albuterol sulfate HFA 90 mcg/actuation aerosol inhaler active Not Available Not Available Not Available ondansetron 4 mg disintegratin g tablet active Not Available Not Available Not Available fluoxetine 20 mg capsule active Not Available Not Available N ot Available fluticasone propionate 50 mcg/actuation nasal spray,suspens ion active Not Available Not Available Not Available hydroxyzine pamoate 25 mg capsule 05/08 completed Not Available Not Available Not Available darifenacin ER 7.5 mg tablet,extend ed release 24 hr T1T PO QD active Not Available Not Available No t Available olopatadine 0.2 % eye drops active Not Available Not Available Not Available Movantik 25 mg tablet 05/08 completed Not Available Not Available Not Available Vitals Date Recorded Body height Respiratory rate Heart rate Body temperature Systolic And Diastolic Provider Name and Address Organization Details Last Updated DateTime 0 167.64 cm 22 /min 72 /min 98 [degF] 182/85 mm[Hg] Talisha Dao [place] [facility], 0 14:08:54 Social History Question Answer Notes LastModified by Organizat ion Details LastModified Time Tobacco Smoking Status Never Smoker Not Available [employer] 08/29/2020 03:20:23 Able To Swim? No [email or web address] Informatio n not available 05/08/2020 Accident Related Injury No [email or web address] Information not available 05/08/2020 Do You Have An Advance Directive? No [id number] Information not available 08/29/2020 Animal Exposure? Yes [email or web address] Informa tion not available 05/08/2020 Are You Currently Sexually Active With Anyone Who Has Traveled (within The Last 12 Weeks) To A Z[place]-affected Area? No [id number] Information not available 08/29/2020 Do You Wear A Helmet When Biking? No [id number] Information not available 08/29/2020 Are You Blind Or Do You Have Difficulty Seeing? No [id number] Information not available 08/29/2020 What Is Your Level Of Caffeine Consumption? Occasional [id number] Information not available 08/29/2020 Concerns About Meeting Basic Needs (food, Housing, Heat, Etc)? No [email or web address] Information not available 05/08/2020 Are You Deaf Or Do You Have Serious Difficulty Hearing? No [id number] Information not available 08/29/2020 What Type Of Diet Are You Following? REGULAR [id number] Information not available 08/29/2020 How Many Days Of Moderate To Strenuous Exercise, Like A Brisk Walk, Did You Do In The Last 7 Days? 1 [id number] Information not available 08/29/2020 On Those Days That You Engage In Moderate To Strenuous Exercise, How Many Minutes, On Average, Do You Exercise? 1 [id number] Information not available 08/29/2020 Family History Of Heart Disease? Yes [email or web address] Information not available 05/08/2020 Have There Been Any Changes To Your Family Or Social Situation? No [id number] Information not available 08/29/2020 How Hard Is It For You To Pay For The Very Basics Like Food, Housing, Medical Care, And Heating? 1 [email or web address] Information not available 05/08/2020 Are There Any Guns Present In Your Home? No [id number] Information not available 08/29/2020 Hard Of Hearing Or Deaf In One Or Both Ears? No [email or web address] Information not available 05/08/2020 Legally Blind In One Or Both Eyes? No [email or web address] Information not available 05/08/2020 Live Alone Or With Others? With Others [email or web address] Information not available 05/08/2020 Do You Have A Medical Power Of Blood Typer? No [id number] Information not available 08/29/2020 What Was The Date Of Your Most Recent Tobacco Screening? 05/08/2020 [id number] Information not available 08/29/2020 How Many Children Do You Have? 2 [id number] Information not available 08/29/2020 Performs Monthly Self-breast Exam? No [email or web address] Information not available 05/08/2020 Do You Have Any Pets? Yes [id number] Information not available 08/29/2020 Difficulty Reading? No [email or web address] Information not available 05/08/2020 Seat Belts Used Routinely Yes Information not available 05/08/2020 Are You Sexually Active? No [id number] Information not available 08/29/2020 Smoke Alarm In Home Yes [email or web address] Information not available 05/08/2020 Do You Have Smoke And Carbon Monoxide Detectors In Your Home? Yes [id number] Information not available 08/29/2020 Are You Passively Exposed To Smoke? No [email or web address] Information not available 05/08/2020 Are There Any Smokers In Your House? No [email or web address] Information not available 05/08/2020 General Stress Level Medium [email or web address] Information not available 05/08/2020 Sun Exposure Minimal [email or web address] Information not available 05/08/2020 Do You Use Sunscreen Routinely? No [id number] Information not available 08/29/2020 TB Risk Low [email or web address] Information n ot available 05/08/2020 Difficulty Watching TV? No Information not available 05/08/2020 Do You Have Difficulty Walking Or Climbing Stairs? No [id number] Information not available 08/29/2020 Sex: Unknown Functional Status Question Answer Note LastModified by Organizat ion Details LastModified Time What is your level of alcohol consumption? None [id number] Information not available 08/29/2020 Do you or have you ever used smokeless tobacco? Never used smokeless tobacco [id number] Information not available 08/29/2020 Are you currently employed? No [id number] Information not available 08/29/2020 Do you have transportation difficulties? No [id number] Information not available 08/29/2020 Are you able to walk independently without assistance or assistive devices? YESWOREST [id number] Information not available 08/29/2020 Do you have difficulty doing errands alone? No [id number] Information not available 08/29/2020 Are you able to care for yourself independently? Yes [id number] Information not available 08/29/2020 Do you have difficulty dressing, bathing, grooming, or toileting? Yes [id number] Information not available 08/29/2020 Do you or have you ever used e-cigarettes or vape? Never used electronic cigarettes [id number] Information not available 08/29/2020 What is your exercise level? None [id number] Information not available 08/29/2020 Mental Status Question Answer Note LastModified by Organization D etails LastModified Time Do you feel stressed (tense, restless, nervous, or anxious, or unable to sleep at night)? 1 [id number] Information not available 08/29/2020 Do you have difficulty concentrating, remembering or making decisions? No [id number] Information no t available 08/29/2020 Family History Nothing Reported. Medical History Condition Response Coronary Artery Disease N Other N Gout N Blood Diseases N Kidney Stones N Hyperthyroidism N Enlarged Prostate N Blood Transfusion N COPD N Depression Y Dermatologic Disorders N Gestational Diabetes N Anxiety Disorder Y Autoimmune disease N Muscle, Joint, or Bone Problems Y Obesity Y Vision or Eye Problems N Arthritis Y Infertility N Polyps N Mental Disorder N Cancer N Varicosities N Stroke N Neurologic/Epilepsy N Headaches N Fibromyalgia N Kidney Disease Y Heart Problems N Ear or Hearing Problems N Hospitalizations N Acne N Eating Disorder N Skin Problems N MRSA exposure N Constipation N Heartburn N Art (IVF or FET) N Bladder Problems Y Bleeding Disorder N Tuberculosis N AIDS/HIV N G.E.R.D N Asthma Y Trauma/Violence N Hepatitis N Pulmonary Embolism N Chronic Ear Infections N Chicken Pox Y Autism Spectrum Disorder (ASD) N Thrombophilias N Allergies (Food, seasonal, environmental ) Y Colon Cancer N Drug/Latex Allergies/Reactions N Breast Cancer N Lung Disease N Hypothyroidism Y Defects or Inherited Disease N Developmental or Behavioral Disorders N Breast Problem N Difficulty Swallowing N Hematologic disorders N Anesthesia Complications N History of STI N Deep Vein Thrombosis N Polycystic ovary syndrome N Meniere's disease N History of abnormal pap N Endometriosis N High Cholesterol N Liver Disease N Allergies/Hayfever Y Kidney Problems Y Thyroid Problems Y GI Problems N ADD/ADHD N Anemia N Mental Illness N Psychiatric Illness N Diabetes N Ovarian Cancer N Pulmonary (TB, Asthma) N Seizures/Epilepsy N Congestive Heart Failure (CHF) N Hyperlipidemia N Eczema N Diverticulitis N Abuse/Domestic Violence N Depression/ depression N Heart Disease N Hypertension Y Pre-Eclampsia N Osteoporosis N Gynecological History Statement/Question Response Abnormal Pap N Flow Heavy Date of LMP On BCP's at Conception? N STIs/STDs N HPV Vaccine N Age at Menarche 13 Age at First Child 29 Sexually Active? N Menses Monthly N Date of Last Pap Smear 05/08/2020 Sexual Problems? N LMP Obstetrics History GPAL:G 2 P 2 0 0 2 Type Value Full Term 2 Living 2 Total 2 Past Encounters Encounter ID Performer Location Encounter Start Date Encounter Closed Date Diagnosis/Indication Diagnosis SNOMED-CT Code Diagnosis ICD10 Code Diagnosis IMO Codes Diagnosis Note [id number] Horace Oliver, Main Office [address] [place] [id number] 05/08/2020 13:31:06 05/08/2020 15:21:38 Urinary incontinence 837936835 N39.498 Gynecologi c examination 02078088 Z01.411 pap Irregular periods 672451 07 N92.5 labs/us Abnormal u terine bleeding 9594638358 9100 N92.0 Severe obesity 999122445 1 9104 E66.01 Bacterial vaginosis 4197 86736 N76.0 Screening for mental disorders 553996346 Z13.89 Health Concerns Section Related Observation LastModified by Organization Detai ls LastModified Time None Recorded Concern Status LastModified by Organization Details LastModified Time None Recorded Advance Directives Directive N: Payers Insurance Date Sequence Insurance Name Policy Number Policy Torres Covered Member ID Torres Member ID Guarantor Name 09/20/2020 2 MEDICAID-[facility] CHOICES - FFS/TRADITIO NAL Marylu Carlos [id number] Marylu Carlos 09/20/2020 1 [facility] (MEDICARE REPLACEMENT/ ADVANTAGE - HMO) Marylu Carlos [id number] Marylu Carlos Notes Date Note Type Note Provider Name and Address Organization Details Recorded Time 0 text/html Annual GYNReported by PatientGenitourinary symptomsFor menstrual cycle, patient reportsirregular cycle intervals. For urinary symptoms, patient reportsnocturiabut reportsno hematuriaandno incontinence. For vulva, patient reportsno genital lesion. For vagina, patient reportsnormal vaginal discharge.Breast symptomsFor breast, patient reportsno breast pain,no breast lump, andno nipple discharge.Endocrine symptomsFor sexual complaints, patient reportsno sexual complaints,no pain during intercourse, andnormal libido. For menopausal symptoms, patient reportsno menopausal symptomsandnormal vaginal lubrication.Psychological symptomsFor psychological symptoms, patient reportsno depression,no anxiety, andno pmdd.Preventative measuresFor preventive measures, patient reportsneeds to schedule mammogram. Patient presents for annual Horace Oliver, DO [address], [place], [address], [facility], 08/05/2020 15:51:33 OBGyn Episode Ob Episode Information Episode Created Date Number of Fetuses Patient Bloodtype Patient rh Status Prepregnancy Weight lbs Domestic Partner Domestic Partner Phone Father Name Associate Store Director Status 05/08/20 20 1 CLOSED Fetus Data First Name Last Name Admitted to NICU Weight (g) Sex Living Outcome Pediatric Complications Fetus ID Race Codes Race Delivery Type 4989.51 2 F Full Term 3185 Ehsan Calculation Initial Ehsan Date Initial Exam Date Initial Exam Provider Initial Ultrasound Date Last Menstrual Period Date Ultra Sound Weeks Gestation 0 Eighteen To Twenty Week Ehsan Update Ultra Sound Date Fundal Height At Umbil Quickening Date Ultra Sound Latest Weeks Gestation Final Ehsan Confirmed By Final Ehsan Confirmed Date Final Ehsan Date Ultra Sound Latest Days Gestation 0 0 Menstrual History Last Menstrual Date Menses Monthly On Bcp Conception Prior Menses Frequency Hcg Plus Date Menarche Onset Age Delivery Information Delivery Date Delivery Type Labor Anesthesia Weeks Gestation Incision Type Labor Labor Length Hrs Delivered By Post Complications Tubal Sterilization Discharge Date Comments 6 37 Discharge Information Feeding Method Contraceptive Method Maternal HG B and HCT Levels Ob Episode Information Episode Created Date Number of Fetuses Patient Bloodtype Patient rh Status Prepregnancy Weight lbs Domestic Partner Domestic Partner Phone Father Name Associate Store Director Status 05/08/20 20 1 CLOSED Fetus Data First Name Last Name Admitted to NICU Weight (g) Sex Living Outcome Pediatric Complications Fetus ID Race Codes Race Delivery Type 4989.51 2 F Full Term 3186 Ehsan Calculation Initial Ehsan Date Initial Exam Date Initial Exam Provider Initial Ultrasound Date Last Menstrual Period Date Ultra Sound Weeks Gestation 0 Eighteen To Twenty Week Ehsan Update Ultra Sound Date Fundal Height At Umbil Quickening Date Ultra Sound Latest Weeks Gestation Final Ehsan Confirmed By Final Ehsan Confirmed Date Final Ehsan Date Ultra Sound Latest Days Gestation 0 0 Menstrual History Last Menstrual Date Menses Monthly On Bcp Conception Prior Menses Frequency Hcg Plus Date Menarche Onset Age Delivery Information Delivery Date Delivery Type Labor Anesthesia Weeks Gestation Incision Type Labor Labor Length Hrs Delivered By Post Complications Tubal Sterilization Discharge Date Comments 7 37 Discharge Information Feeding Method Contraceptive Method Maternal HG B and HCT Levels
[2025-10-20 08:14] LABS: RA Latex Turbid. 10.3 IU/mL (<14.0)
== END 2025-10-18 23:59 | disposition home or self-care (01) ==
LOC: LAB.DROPOF 10-19 18:12
PROVIDERS: PCP Student in an Organized Health Care Education/Training Program; Visit Provider Student in an Organized Health Care Education/Training Program
DX: E03.9 Hypothyroidism, unspecified (principal); E11.9 Type 2 diabetes mellitus without complications; Z11.59 Encounter for screening for other viral diseases; M25.50 Pain in unspecified joint; M25.40 Effusion, unspecified joint
CPT/HCPCS: 83036; 84439; 84443; 84550; 85651; 86038; 86140; 86431